=== PATIENT | female | born 1960 | race Hispanic/Latino ===

== ENCOUNTER 2024-02-16 11:44 | Emergency (ER) | payer SELFPAY ==
[~2024-02-16] VITALS: Ht 167.6 cm; Wt 85.7 kg
[2024-02-16 11:45] VITALS: PULSE 77; RESP 16; TEMP 97.6
[2024-02-16 12:38] LABS: BASOPHILS % 0.3 % (0.0-1.0); EOSINOPHILS # (AUTO) 0.1 (0.0-0.4); EOSINOPHILS % 2.1 % (0.0-6.0); HEMATOCRIT 44.6 % (34.2-44.1); LYMPHOCYTES # (AUTO) 1.4 (1.0-3.2); LYMPHOCYTES % 21.1 % (18.0-39.1); MEAN CORPUSCULAR HEMOGLOBIN 30.8 pg (28-32); MEAN CORPUSCULAR HGB CONC 31.4 g/dL (31-35); MONOCYTES # (AUTO) 0.4 (0.2-0.8); MONOCYTES % 5.7 % (4.4-11.3); NEUTROPHILS # (AUTO) 4.7 (2.1-6.9); NEUTROPHILS % 70.5 % (38.7-80.0); PLATELET COUNT 206 x10e3/uL (140-360); RED BLOOD COUNT 4.55 x10e6/uL (3.6-5.1); RED CELL DISTRIBUTION WIDTH 12.8 % (11.7-14.4); WHITE BLOOD COUNT 6.67 x10e3/uL (4.8-10.8)
[2024-02-16] MEDS: SODIUM CHLORIDE 0.9% 1000ML 1,000 ML IV STA (12:53)
[2024-02-16 13:04] LABS: ALBUMIN/GLOBULIN RATIO 1.1 (0.8-2.0); ANION GAP 16.4 mmol/L (8-16); BILIRUBIN,TOTAL 0.7 mg/dL (0.2-1.2); CALCIUM 9.2 mg/dL (8.4-10.2); CREATININE, SERUM 0.79 mg/dL (0.57-1.11); TOTAL PROTEIN 7.7 g/dL (6.5-8.1)
[2024-02-16 13:07] LABS: POTASSIUM 3.4 mmol/L (3.5-5.1)
[2024-02-16] MEDS ORDERED: ONDANSETRON ODT4 MG PO (14:17)
[2024-02-16 14:23] LABS: CORONAVIRUS COVID-19 AG NEGATIVE (NEGATIVE); INFLUENZA B AG NEGATIVE (NEGATIVE)
[2024-02-16 14:25] LABS: INFLUENZA A AG POSITIVE (NEGATIVE)
[2024-02-16] MEDS ORDERED: XOFLUZA80 MG PO (14:25)
[2024-02-16 15:37] VITALS: BP 136/76; PULSE 84; RESP 18; TEMP 98.9; O2SAT 98
== END 2024-02-16 15:38 | disposition home or self-care (01) ==
LOC: ER 12:33
DX: R05.9 Cough, unspecified (principal); J10.1 Influenza due to other identified influenza virus with other respiratory manifestations; R55 Syncope and collapse
CPT/HCPCS: 36415; 70450; 71045; 80053; 83880; 84484; 85025; 87428; 93005; 99284; J7030